=== PATIENT | male | born 1990 | race Caucasian/White ===

== ENCOUNTER 2019-08-24 11:07 | Emergency (ER) | payer OTHER ==
[2019-08-24 11:30] VITALS: RESP 18
[2019-08-24] MEDS ORDERED: SODIUM CHLORIDE 0.9% 1,000 ML IV ONE (11:34)
[2019-08-24] MEDS ORDERED: SODIUM CHLORIDE 0.9% 1,000 ML IV SCH (11:45)
--- NOTE | 2019-08-24 12:15 | XR ---
Left shoulder HISTORY: Pain 3 views of the left shoulder Bone mineralization, joint spaces and alignment are maintained. There are overlying artifacts present . Left lung apex as visualized is normal. IMPRESSION: Normal left shoulder.
[2019-08-24 12:22] LABS: Basophils # (A) 0.1 k/uL (0-0.2); Basophils % (A) 1 %; Eosinophils # (A) 0.2 k/uL (0-0.7); Eosinophils % (A) 3 %; HGB 13.9 gm/dL (13.0-17.5); Lymphocytes % (A) 30 %; MCH 31.8 pg (25.0-35.0); MCHC 33.1 g/dL (31.0-37.0); MCV 96.2 fL (80.0-100.0); Monocytes # (A) 0.4 k/uL (0-1.0); Monocytes % (A) 6 %; Neutrophils # (A) 3.8 k/uL (1.3-7.7); Neutrophils % (A) 58 %; Platelet Count 270 k/uL (150-450); RBC 4.36 m/uL (4.30-5.90); RDW 12.4 % (11.5-15.5); WBC 6.6 k/uL (3.8-10.6)
[2019-08-24 12:29] LABS: Appearance,Urine Clear (Clear); Bilirubin,Urine Negative (Negative); Blood,Urine Negative (Negative); Color,Urine Yellow; Glucose,Urine (UA) Negative (Negative); Ketones,Urine Negative (Negative); Leukocyte Esterase,Urine Negative (Negative); Nitrite,Urine Negative (Negative); PH, Urine 5.5 (5.0-8.0); Protein,Urine Trace (Negative); Specific Gravity,Urine 1.023 (1.001-1.035); Urobilinogen,Urine <2.0 mg/dL (<2.0)
[2019-08-24 12:31] LABS: ALT 49 U/L (21-72); AST 27 U/L (17-59); African American GFR (CKD) >90 (>60 ml/min/1.73 sqM); Albumin 4.4 g/dL (3.5-5.0); Alkaline Phosphatase 50 U/L (38-126); Amylase 49 U/L (30-110); Anion Gap 8 mmol/L; Blood Urea Nitrogen 18 mg/dL (9-20); Calcium 9.4 mg/dL (8.4-10.2); Carbon Dioxide 25 mmol/L (22-30); Chloride 108 mmol/L (98-107); Glucose 84 mg/dL (74-99); Non-African American GFR(CKD) >90 (>60 ml/min/1.73 sqM); Potassium 4.9 mmol/L (3.5-5.1); Sodium 141 mmol/L (137-145); Total Bilirubin 0.3 mg/dL (0.2-1.3); Total Protein 7.3 g/dL (6.3-8.2)
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
[2019-08-24 12:59] VITALS: BP 123/74; PULSE 76; TEMP 98.3
== END 2019-08-24 12:59 | disposition home or self-care (01) ==
LOC: EC 11:07
DX: R19.7 Diarrhea, unspecified (principal); R11.10 Vomiting, unspecified; M25.512 Pain in left shoulder; R10.12 Left upper quadrant pain; F12.90 Cannabis use, unspecified, uncomplicated; F17.200 Nicotine dependence, unspecified, uncomplicated; Z86.14 Personal history of Methicillin resistant Staphylococcus aureus infection; Z87.19 Personal history of other diseases of the digestive system; Z98.890 Other specified postprocedural states
CPT/HCPCS: 36415; 80053; 81003; 82150; 83690; 85025; 96360; 99284

== ENCOUNTER 2020-12-15 10:16 | Emergency (ER) | payer OTHER ==
[2020-12-15 10:20] VITALS: BP 136/73; PULSE 93; RESP 16; TEMP 97.6
[2020-12-15] MEDS ORDERED: FLUORESCEIN STRIPS 1 MG STRIP RIGHT EYE STA (10:46)
[2020-12-15] MEDS ORDERED: PROPARACAINE 0.5% OPHTH DROPS 15 ML BTL RIGHT EYE STA ×2 (10:46)
[2020-12-15] MEDS ORDERED: OFLOXACIN 0.3% OPHTH DROPS 5 ML BOTTLE RIGHT EYE STA (11:18)
--- NOTE | 2020-12-15 11:24 | ED ---
General Adult HPI - General Chief complaint: Eye Problems Stated complaint: Swollen eye Time Seen by Provider: 12/15/20 10:30 Source: patient Mode of arrival: ambulatory Limitations: no limitations - History of Present Illness Initial comments: 30-year-old male presents to the emergency room for a chief complaint of right eye pain. Patient reports that a week ago he started to have irritation of the right eye. States that he would wake up every day and it was crusted shut. She states that 3days ago he went to urgent care and they told him to keep it clean but that he otherwise did not need any other treatment. He reports he started to use an astringent eyedrop. The next day his eye started to swell. States the drops are very irritating to his eye. Patient states he feels like he has a film over his eye because of the drainage. States it feels like there is sandpaper in his eye. Patient denies any pain with movement of the eye. Denies fevers. Denies redness of the face or around the eye.Patient has no other complaints at this time including shortness of breath, chest pain, abdominal pain, nausea or vomiting, headache, or visual changes. - Related Data Home Medications Medication Instructions Recorded Confirmed Acetaminophen Tab [Tylenol Tab] 1,000 mg PO Q6HR PRN 08/24/19 08/24/19 Allergies Allergy/AdvReac Type Severity Reaction Status Date / Time No Known Allergies Allergy Verified 12/15/20 10:17 Review of Systems ROS Statement: Those systems with pertinent positive or pertinent negative responses have been documented in the HPI. ROS Other: All systems not noted in ROS Statement are negative. 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 History of Any Multi-Drug Resistant Organisms: MRSA Date of last positivie culture/infection: stomach MDRO Source:: 2014 Past Surgical History: No Surgical Hx Reported Past Psychological History: No Psychological Hx Reported, Depression Smoking Status: Current every day smoker Past Alcohol Use History: Rare Past Drug Use History: Marijuana General Exam Limitations: no limitations General appearance: alert, in no apparent distress Head exam: Present: atraumatic, normocephalic, normal inspection Eye exam: Present: PERRL, EOMI, conjunctival injection, periorbital swelling (Mild periorbital edema without erythema or tenderness), other (Purulent drainage noted on the eyelids). Absent: normal appearance, scleral icterus, periorbital tenderness Expanded Eyelids: Normal Inspection: Left, Swelling: Right Pupils: Regular, Round: Bilateral, Reactive: Bilateral Sclera/Conjunctival: Normal Inspection: Left, Injection: Right Visual acuity (R) = 20/: 25 Visual acuity (L) = 20/: 25 With correction: Yes IOP (R) in mmH IOP (L) in mmH IOP measured with: Tonopen ENT exam: Present: normal exam, mucous membranes moist Neck exam: Present: normal inspection, full ROM. Absent: tenderness, meningis mus, lymphadenopathy Respiratory exam: Present: normal lung sounds bilaterally. Absent: respiratory distress, wheezes, rales, rhonchi, stridor Cardiovascular Exam: Present: regular rate, normal rhythm, normal heart sounds Course Vital Signs 12/15/20 10:17 Temperature 97.6 F Pulse Rate 93 Respiratory 16 Rate Blood Pressure 136/73 O2 Sat by Pulse 99 Oximetry Medical Decision Making - Medical Decision Making Vitals are stable. Patient does have some mild periorbital edema however no periorbital erythema tenderness or induration. Patient does have conjunctival injection and purulent drainage noted on the eyelids. The eye was numbed with proparacaine which did help with his symptoms. I did stain the eye with fluorescein stain and vigorous with Wood's lamp, no corneal abrasions or ulcerations. No history of contact usage. Visual acuity 20/20 5 bilaterally. Patient's IOP is 26 right eye, 23 OS. States his pressures are always high and he was told he has glaucoma. He states he needs to follow up for this. At this time patient's and his are consistent with a bacterial conjunctivitis. No evidence for an orbital phalanx at this time as patient does not have any pain with extraocular movements or redness or induration of the periorbital area. I did discussed return parameters. I discussed patient needs to follow up with ophthalmology for this as well as his pressures. He will return here for any worsening symptoms. Disposition Clinical Impression: Conjunctivitis Disposition: HOME SELF-CARE Condition: Good Instructions (If sedation given, give patient instructions): Conjunctivitis (ED) Additional Instructions: Discontinue previous drops. Please use antibiotics as directed (use Good Rx lisa): Days 1-2: 1-2 drops in the right eye every 4 hours Days 3-7: 1-2 drops in the right eye 4 times daily Follow-up with primary care and ophthalmology. Discussed high pressures in the eye. Return to the emergency room for any worsening symptoms. Is patient prescribed a controlled substance at d/c from ED?: No Referrals: Noemi Abbott MD [REFERRING] - 1-2 days Ra Sharp MD [STAFF PHYSICIAN] - 1-2 days Time of Disposition: 11:21
== END 2020-12-15 11:37 | disposition home or self-care (01) ==
LOC: EC 10:16
DX: H10.9 Unspecified conjunctivitis (principal); D66 Hereditary factor VIII deficiency; F32.9 Major depressive disorder, single episode, unspecified; H40.9 Unspecified glaucoma; F17.200 Nicotine dependence, unspecified, uncomplicated; Z86.14 Personal history of Methicillin resistant Staphylococcus aureus infection
CPT/HCPCS: 99283

== ENCOUNTER 2021-08-04 09:16 | Emergency (ER) | payer OTHER ==
[2021-08-04 09:25] VITALS: PULSE 78; RESP 18; TEMP 98
[2021-08-04] MEDS ORDERED: MORPHINE SULFATE 4 MG/ML SYRINGE IV STA (09:42)
[2021-08-04] MEDS ORDERED: ONDANSETRON 4 MG/2 ML VIAL IVP STA (09:42)
[2021-08-04] MEDS ORDERED: SODIUM CHLORIDE 0.9% 1,000 ML IV STA (09:42)
[2021-08-04 10:07] LABS: Basophils # (A) 0.1 k/uL (0-0.2); Basophils % (A) 0 %; Eosinophils # (A) 0.1 k/uL (0-0.7); Eosinophils % (A) 1 %; HCT 41.5 % (39.0-53.0); HGB 13.9 gm/dL (13.0-17.5); Lymphocytes % (A) 25 %; MCH 32.4 pg (25.0-35.0); MCHC 33.4 g/dL (31.0-37.0); MCV 97.1 fL (80.0-100.0); Mean Platelet Volume 7.6; Monocytes # (A) 0.9 k/uL (0-1.0); Monocytes % (A) 6 %; Neutrophils # (A) 10.6 k/uL (1.3-7.7); Neutrophils % (A) 67 %; Platelet Count 277 k/uL (150-450); RBC 4.28 m/uL (4.30-5.90); RDW 12.2 % (11.5-15.5); WBC 15.9 k/uL (3.8-10.6)
[2021-08-04 10:19] LABS: Appearance,Urine Clear (Clear); Bilirubin,Urine Negative (Negative); Blood,Urine Negative (Negative); Calcium Oxalate Crystals,Urine Rare /hpf; Color,Urine Yellow; Glucose,Urine (UA) Negative (Negative); Ketones,Urine Negative (Negative); Leukocyte Esterase,Urine Negative (Negative); Mucus,Urine Many /hpf; Nitrite,Urine Negative (Negative); Protein,Urine 1+ (Negative); RBC,Urine 3 /hpf (0-5); Specific Gravity,Urine 1.042 (1.001-1.035); Squamous Epithelial Cell,Urine <1 /hpf (0-4); WBC,Urine <1 /hpf (0-5)
[2021-08-04 10:50] LABS: ALT 16 U/L (4-49); AST 21 U/L (17-59); African American GFR (CKD) >90 (>60 ml/min/1.73 sqM); Albumin 4.2 g/dL (3.5-5.0); Alkaline Phosphatase 49 U/L (38-126); Amylase 57 U/L (30-110); Anion Gap 8 mmol/L; Blood Urea Nitrogen 16 mg/dL (9-20); Calcium 9.4 mg/dL (8.4-10.2); Carbon Dioxide 26 mmol/L (22-30); Chloride 106 mmol/L (98-107); Glucose 89 mg/dL (74-99); Lipase 55 U/L (23-300); Non-African American GFR(CKD) >90 (>60 ml/min/1.73 sqM); Potassium 3.4 mmol/L (3.5-5.1); Sodium 140 mmol/L (137-145); Total Bilirubin 0.2 mg/dL (0.2-1.3); Total Protein 6.9 g/dL (6.3-8.2)
--- NOTE | 2021-08-04 11:19 | CT ---
EXAMINATION TYPE: CT abdomen pelvis w con DATE OF EXAM: 08/04/2021 COMPARISON: NONE HISTORY: 30-year-old male history of Crohn's disease, Abdominal pain TECHNIQUE: Contiguous axial scanning of the abdomen and pelvis following administration of 100 ml Iso basil 300 IV contrast. Delayed images through the kidneys and coronal/sagittal reconstructions perform ed. CT DLP: 936.1 mGycm Automated exposure control for dose reduction was used. FINDINGS: Heart normal size without pericardial effusion. The groundglass opacities seen previously in the lowe r lungs have resolved. No focal liver lesion or biliary ductal dilatation. Portal venous system is patent. Gallbladder, adrenal glands, right kidney, spleen, pancreas appear within normal limits. 1.8 cm cortical hypodense round lesion lateral mid to lower pole left kidney is new. It shows interme diate attenuation and probably represents a proteinaceous or hemorrhagic cyst. Retroaortic left renal vein. No dilated small bowel, free fluid, or free air. No mesenteric or retroperitoneal lymphadenopathy see n. Prominent fluid-filled small bowel loops lower abdomen and pelvis. No abnormal wall thickening is karen jaci identified. Normal appendix. Moderate stool distal sigmoid and rectum. No pericolonic inflammatory changes are id entified. Bladder not distended. Prostate gland measures 5.1 cm wide. No abnormal fluid collection in the pelvi s or pelvic lymphadenopathy. Bones: Right L5 pars interarticularis defect. No osseous destructive process. IMPRESSION: 1. PROMINENT FLUID-FILLED SMALL BOWEL LOOPS IN THE LOWER ABDOMEN AND PELVIS MAY BE TRANSIENT. FINDING S COULD REFLECT A NONSPECIFIC MILD ENTERITIS. 2. A NEW 1.8 CM CORTICAL LESION LATERAL LEFT KIDNEY SHOWS INTERMEDIATE ATTENUATION. A HEMORRHAGIC OR PROTEINACEOUS CYST IS FAVORED. NONEMERGENT FOLLOW-UP KIDNEY ULTRASOUND TO CONFIRM THAT THIS REPRESENT S A CYST. 3. MODERATE STOOL IN THE DISTAL SIGMOID AND RECTUM.
--- NOTE | 2021-08-04 11:26 | ED ---
Abdominal Pain HPI - General Chief Complaint: Abdominal Pain Stated Complaint: abd pain & vomiting Time Seen by Provider: 08/04/21 09:26 Source: patient, RN notes reviewed Mode of arrival: ambulatory Limitations: no limitations - History of Present Illness Initial Comments: Patient is a 30-year-old male that presents to the emergency department complain ing of generalized abdominal pain for the past 5 days. He also notes is been nauseous and vomiting several times. He notes that he does have a history of abdominal issues was being worked up for Crohn's but his physician in past when he has not followed up since. Patient noted generalized abdominal discomfort. He was otherwise well-appearing on exam. He denied chest pain shortness of breath headache diarrhea constipation fever fatigue chills. - Related Data Home Medications Medication Instructions Recorded Confirmed Acetaminophen Tab [Tylenol Tab] 1,000 mg PO Q6HR PRN 08/24/19 08/24/19 Allergies Allergy/AdvReac Type Severity Reaction Status Date / Time Penicillins Allergy Rash/Hives Verified 08/04/21 09:25 Review of Systems ROS Statement: Those systems with pertinent positive or pertinent negative responses have been documented in the HPI. ROS Other: All systems not noted in ROS Statement are negative. 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 Absent: scleral icterus, conjunctival injection, periorbital swelling ENT exam: Present: normal exam, mucous membranes moist Neck exam: Present: normal inspection Respiratory exam: Present: normal lung sounds bilaterally. Absent: respiratory distress, wheezes, rales, rhonchi, stridor Cardiovascular Exam: Present: regular rate, normal rhythm, normal heart sounds. Absent: systolic murmur, diastolic murmur, rubs, gallop, clicks GI/Abdominal exam: Present: soft, tenderness (Generalized all quadrants), normal bowel sounds. Absent: distended, guarding, rebound, rigid Extremities exam: Present: normal inspection, full ROM, normal capillary refill. Absent: tenderness, pedal edema, joint swelling, calf tenderness Back exam: Present: normal inspection Neurological exam: Present: alert, oriented X3 Psychiatric exam: Present: normal affect, normal mood Skin exam: Present: warm, dry, intact, normal color. Absent: rash Course Vital Signs 08/04/21 09:21 Temperature 98 F Pulse Rate 78 Respiratory 18 Rate Blood Pressure 144/89 O2 Sat by Pulse 98 Oximetry Medical Decision Making - Medical Decision Making 30-year-old male complaining of abdominal pain with nausea and vomiting for the past several days. Labs, 1 L normal saline, 4 mg Zofran, CT abdomen and pelvis ordered. Labs: White blood cells 15.9 most likely reactive to nausea vomiting, CMP unremarkable. Urinalysis unremarkable. Computed tomography scan shows mild uncomplicated at her eyes and several small hypoechoic kidney lesions consistent with cysts follow-up ultrasound medic. Patient is removed discharge home Zofran starter pack with follow-up to primary care. Case discussed with Dr. Callejas, patient discharge home. - Lab Data Result diagrams: 08/04/21 10:00 08/04/21 10:00 Lab Results 08/04/21 08/04/21 08/04/21 Range/Units 10:00 10:00 10:00 WBC 15.9 H (3.8-10.6) k/uL RBC 4.28 L (4.30-5.90) m/uL Hgb 13.9 (13.0-17.5) gm/dL Hct 41.5 (39.0-53.0) % MCV 97.1 (80.0-100.0) fL MCH 32.4 (25.0-35.0) pg MCHC 33.4 (31.0-37.0) g/dL RDW 12.2 (11.5-15.5) % Plt Count 277 (150-450) k/uL MPV 7.6 Neutrophils % 67 % Lymphocytes % 25 % Monocytes % 6 % Eosinophils % 1 % Basophils % 0 % Neutrophils # 10.6 H (1.3-7.7) k/uL Lymphocytes # 4.0 (1.0-4.8) k/uL Monocytes # 0.9 (0-1.0) k/uL Eosinophils # 0.1 (0-0.7) k/uL Basophils # 0.1 (0-0.2) k/uL Sodium 140 (137-145) mmol/L Potassium 3.4 L (3.5-5.1) mmol/L Chloride 106 (98-107) mmol/L Carbon Dioxide 26 (22-30) mmol/L Anion Gap 8 mmol/L BUN 16 (9-20) mg/dL Creatinine 0.84 (0.66-1.25) mg/dL Est GFR (CKD-EPI)AfAm >90 (>60 ml/min/1.73 sqM) Est GFR (CKD-EPI)NonAf >90 (>60 ml/min/1.73 sqM) Glucose 89 (74-99) mg/dL Calcium 9.4 (8.4-10.2) mg/dL Total Bilirubin 0.2 (0.2-1.3) mg/dL AST 21 (17-59) U/L ALT 16 (4-49) U/L Alkaline Phosphatase 49 (38-126) U/L Total Protein 6.9 (6.3-8.2) g/dL Albumin 4.2 (3.5-5.0) g/dL Amylase 57 (30-110) U/L Lipase 55 (23-300) U/L Urine Color Yellow Urine Appearance Clear (Clear) Urine pH 6.0 (5.0-8.0) Ur Specific [place] 1.042 H (1.001-1.035) Urine Protein 1+ H (Negative) Urine Glucose (UA) Negative (Negative) Urine Ketones Negative (Negative) Urine Blood Negative (Negative) Urine Nitrite Negative (Negative) Urine Bilirubin Negative (Negative) Urine Urobilinogen 3.0 (<2.0) mg/dL Ur Leukocyte Esterase Negative (Negative) Urine RBC 3 (0-5) /hpf Urine WBC <1 (0-5) /hpf Ur Squamous Epith Cells <1 (0-4) /hpf Calcium Oxalate Crystal Rare H (None) /hpf Urine Mucus Many H (None) /hpf - Radiology Data Radiology results: report reviewed, image reviewed CT abdomen and pelvis: Fluid filled small bowel loops in the lower abdomen and pelvis may be transient findings could reflect a nonspecific mild enteritis. A new 1.8 cm cortical lesion lateral left kidney shows intermediate attenuation. A hemorrhagic or proteinaceous cyst is favored. Nonemergent follow-up kidney. TO CONFIRM THAT THIS REPRESENTS A CYST. MODERATE STOOL IN THE DISTAL SIGMOID AND RECTUM. Disposition Clinical Impression: Enteritis Disposition: HOME SELF-CARE Condition: Stable Instructions (If sedation given, give patient instructions): Enteritis (ED) Additional Instructions: Please return to the Emergency Department if symptoms worsen or any other concerns. Follow-up with primary care 1-2 days. Follow-up with kidney ultrasound for cysts found on computed tomography scan. Take Zofran as prescribed. Is patient prescribed a controlled substance at d/c from ED?: No Referrals: None,Stated [Primary Care Provider] - 1-2 days Time of Disposition: 12:44
[2021-08-04] MEDS ORDERED: ONDANSETRON 4 MG ODT STARTER PACK 2 TAB BTL PO STA (12:43)
[2021-08-04 14:16] VITALS: BP 131/81
== END 2021-08-04 14:16 | disposition home or self-care (01) ==
LOC: EC 09:16
DX: K52.9 Noninfective gastroenteritis and colitis, unspecified (principal); F17.200 Nicotine dependence, unspecified, uncomplicated; F12.90 Cannabis use, unspecified, uncomplicated; Z88.0 Allergy status to penicillin
CPT/HCPCS: 99284; 96374; 96375; 96361; 36415; 80053; 82150; 83690; 85025; 81001; 74177; J2270; J2405; S0119; Q9967

== ENCOUNTER 2021-09-20 11:12 | Emergency (ER) | payer BC ==
[2021-09-20 11:30] VITALS: BP 108/69; TEMP 98.2
[2021-09-20] MEDS ORDERED: diphenhydrAMINE 50 MG/ML 1 ML VIAL IVP STA (11:57)
[2021-09-20] MEDS ORDERED: SODIUM CHLORIDE 0.9% 2,000 ML IV STA (11:57)
[2021-09-20] MEDS ORDERED: METOCLOPRAMIDE 5 MG/ML 2 ML VIAL IVP STA (11:57)
[2021-09-20] MEDS ORDERED: HYDROmorphone 0.5 MG/0.5 ML SYRINGE IVP STA (11:57)
[2021-09-20] MEDS ORDERED: KETOROLAC 15 MG/ML 1 ML VIAL IVP STA (11:57)
[2021-09-20 12:31] LABS: Basophils % (A) 1 %; Eosinophils # (A) 0.1 k/uL (0-0.7); Eosinophils % (A) 1 %; HCT 45.8 % (39.0-53.0); HGB 15.7 gm/dL (13.0-17.5); Lymphocytes # (A) 2.3 k/uL (1.0-4.8); Lymphocytes % (A) 35 %; MCHC 34.3 g/dL (31.0-37.0); MCV 96.2 fL (80.0-100.0); Mean Platelet Volume 7.6; Monocytes # (A) 0.4 k/uL (0-1.0); Monocytes % (A) 5 %; Neutrophils # (A) 3.7 k/uL (1.3-7.7); Neutrophils % (A) 56 %; Platelet Count 297 k/uL (150-450); RBC 4.76 m/uL (4.30-5.90); RDW 11.9 % (11.5-15.5); WBC 6.5 k/uL (3.8-10.6)
[2021-09-20 12:48] LABS: ALT 16 U/L (4-49); AST 20 U/L (17-59); African American GFR (CKD) >90 (>60 ml/min/1.73 sqM); Albumin 4.6 g/dL (3.5-5.0); Alkaline Phosphatase 50 U/L (38-126); Amylase 54 U/L (30-110); Anion Gap 11 mmol/L; Blood Urea Nitrogen 17 mg/dL (9-20); Calcium 9.8 mg/dL (8.4-10.2); Carbon Dioxide 24 mmol/L (22-30); Chloride 105 mmol/L (98-107); Creatine Kinase 81 U/L (55-170); Glucose 96 mg/dL (74-99); Lipase 63 U/L (23-300); Magnesium 1.9 mg/dL (1.6-2.3); Non-African American GFR(CKD) >90 (>60 ml/min/1.73 sqM); Potassium 4.5 mmol/L (3.5-5.1); Sodium 140 mmol/L (137-145); Total Bilirubin 0.5 mg/dL (0.2-1.3); Total Protein 7.4 g/dL (6.3-8.2)
--- NOTE | 2021-09-20 13:23 | US ---
EXAMINATION TYPE: US renals and bladder DATE OF EXAM: 09/20/2021 COMPARISON: CT 08/04/2021 CLINICAL HISTORY: pain,. Back pain EXAM MEASUREMENTS: Right Kidney: 10.4 x 4.9 x 5.8 cm Left Kidney: 10.8 x 5.3 x 5.1 cm Right Kidney: No hydronephrosis or masses seen Left Kidney: 0.6cm echogenic focus mid pole, 1.7 x 1.6 x 1.4cm hyperechoic lesion lateral inferior po le Bladder: not fully distended, appears wnl as seen Bilateral Jets seen: no There is no evidence for hydronephrosis at this point in time. No nephrolithiasis is seen. Cortical medullary differentiation is maintained. No masses are identified. The urinary bladder is anechoic. Bilateral ureteral jets are not seen. IMPRESSION: The focus seen in the lateral aspect of the midpole of the left kidney is not simple cystic, may repr esent proteinaceous cyst. MRI of the kidneys could be performed for confirmation.
[2021-09-20 14:16] LABS: Appearance,Urine Clear (Clear); Bilirubin,Urine Negative (Negative); Blood,Urine Negative (Negative); Color,Urine Yellow; Glucose,Urine (UA) Negative (Negative); Ketones,Urine Negative (Negative); Leukocyte Esterase,Urine Negative (Negative); Mucus,Urine Many /hpf; Nitrite,Urine Negative (Negative); PH, Urine 5.5 (5.0-8.0); Protein,Urine 1+ (Negative); RBC,Urine <1 /hpf (0-5); Specific Gravity,Urine 1.033 (1.001-1.035); Squamous Epithelial Cell,Urine 1 /hpf (0-4); Urobilinogen,Urine <2.0 mg/dL (<2.0); WBC,Urine <1 /hpf (0-5)
--- NOTE | 2021-09-20 14:29 | ED ---
General Adult HPI - General Chief complaint: Abdominal Pain Stated complaint: abd & back pain Time Seen by Provider: 09/20/21 11:41 Source: patient, RN notes reviewed Mode of arrival: ambulatory Limitations: no limitations - History of Present Illness Initial comments: This a 30-year-old male presents emergency apartment with chief complaint of back pain. Patient states she's been having some increasing issues he does admit that he does lift at work. Denies any known injury though. Patient states she is concerned she had a CAT scan a few months ago which showed renal cysts was recommended to have an Ultram but never followed up at this point. S tates his urine was dark which also concerned about an episode of vomiting. No prior surgeries no fevers or chills no other complaints. - Related Data Home Medications Medication Instructions Recorded Confirmed Acetaminophen Tab [Tylenol Tab] 1,000 mg PO Q6HR PRN 08/24/19 08/24/19 Allergies Allergy/AdvReac Type Severity Reaction Status Date / Time Penicillins Allergy Rash/Hives Verified 09/20/21 11:27 Review of Systems ROS Statement: Those systems with pertinent positive or pertinent negative responses have been documented in the HPI. ROS Other: All systems not noted in ROS Statement are negative. 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, renal cysts History of Any Multi-Drug Resistant Organisms: MRSA Date of last positivie culture/infection: stomach MDRO Source:: 2014 Past Surgical History: Adenoidectomy, Tonsillectomy Past Psychological History: No Psychological Hx Reported Smoking Status: Current every day smoker Past Alcohol Use History: None Reported Past Drug Use History: Marijuana General Exam Limitations: no limitations General appearance: alert, in no apparent distress Head exam: Present: atraumatic, normocephalic, normal inspection Eye exam: Present: normal appearance, PERRL, EOMI. Absent: scleral icterus, conjunctival injection, periorbital swelling Respiratory exam: Present: normal lung sounds bilaterally. Absent: respiratory distress, wheezes, rales, rhonchi, stridor Cardiovascular Exam: Present: regular rate, normal rhythm, normal heart sounds. Absent: systolic murmur, diastolic murmur, rubs, gallop, clicks GI/Abdominal exam: Present: soft, normal bowel sounds. Absent: distended, tenderness, guarding, rebound, rigid Back exam: Present: full ROM, muscle spasm, paraspinal tenderness. Absent: tenderness, CVA tenderness (R), CVA tenderness (L), vertebral tenderness Neurological exam: Present: alert, oriented X3, CN II-XII intact, reflexes normal. Absent: motor sensory deficit Skin exam: Present: warm, dry, intact, normal color. Absent: rash Course Vital Signs 09/20/21 11:27 Temperature 98.2 F Pulse Rate 97 Respiratory 18 Rate Blood Pressure 108/69 O2 Sat by Pulse 100 Oximetry Medical Decision Making - Medical Decision Making Patient ultrasound, labs unremarkable. Ultrasound did show nonspecific for proteinaceous cyst. Patient pain is improved. I do believe this related to muscle skeletal pain return parameters were discussed. - Lab Data Result diagrams: 09/20/21 12:12 09/20/21 12:12 Lab Results 09/20/21 09/20/21 09/20/21 Range/Units 12:12 12:12 12:12 WBC 6.5 (3.8-10.6) k/uL RBC 4.76 (4.30-5.90) m/uL Hgb 15.7 (13.0-17.5) gm/dL Hct 45.8 (39.0-53.0) % MCV 96.2 (80.0-100.0) fL MCH 33.0 (25.0-35.0) pg MCHC 34.3 (31.0-37.0) g/dL RDW 11.9 (11.5-15.5) % Plt Count 297 (150-450) k/uL MPV 7.6 Neutrophils % 56 % Lymphocytes % 35 % Monocytes % 5 % Eosinophils % 1 % Basophils % 1 % Neutrophils # 3.7 (1.3-7.7) k/uL Lymphocytes # 2.3 (1.0-4.8) k/uL Monocytes # 0.4 (0-1.0) k/uL Eosinophils # 0.1 (0-0.7) k/uL Basophils # 0.0 (0-0.2) k/uL Sodium 140 (137-145) mmol/L Potassium 4.5 (3.5-5.1) mmol/L Chloride 105 (98-107) mmol/L Carbon Dioxide 24 (22-30) mmol/L Anion Gap 11 mmol/L BUN 17 (9-20) mg/dL Creatinine 0.93 (0.66-1.25) mg/dL Est GFR (CKD-EPI)AfAm >90 (>60 ml/min/1.73 sqM) Est GFR (CKD-EPI)NonAf >90 (>60 ml/min/1.73 sqM) Glucose 96 (74-99) mg/dL Plasma Lactic Acid Alvin (0.7-2.0) mmol/L Calcium 9.8 (8.4-10.2) mg/dL Magnesium 1.9 (1.6-2.3) mg/dL Total Bilirubin 0.5 (0.2-1.3) mg/dL AST 20 (17-59) U/L ALT 16 (4-49) U/L Alkaline Phosphatase 50 (38-126) U/L Creatine Kinase 81 (55-170) U/L Total Protein 7.4 (6.3-8.2) g/dL Albumin 4.6 (3.5-5.0) g/dL Amylase 54 (30-110) U/L Lipase 63 (23-300) U/L Urine Color Yellow Urine Appearance Clear (Clear) Urine pH 5.5 (5.0-8.0) Ur Specific [place] 1.033 (1.001-1.035) Urine Protein 1+ H (Negative) Urine Glucose (UA) Negative (Negative) Urine Ketones Negative (Negative) Urine Blood Negative (Negative) Urine Nitrite Negative (Negative) Urine Bilirubin Negative (Negative) Urine Urobilinogen <2.0 (<2.0) mg/dL Ur Leukocyte Esterase Negative (Negative) Urine RBC <1 (0-5) /hpf Urine WBC <1 (0-5) /hpf Ur Squamous Epith Cells 1 (0-4) /hpf Urine Mucus Many H (None) /hpf 09/20/21 Range/Units 12:12 WBC (3.8-10.6) k/uL RBC (4.30-5.90) m/uL Hgb (13.0-17.5) gm/dL Hct (39.0-53.0) % MCV (80.0-100.0) fL MCH (25.0-35.0) pg MCHC (31.0-37.0) g/dL RDW (11.5-15.5) % Plt Count (150-450) k/uL MPV Neutrophils % % Lymphocytes % % Monocytes % % Eosinophils % % Basophils % % Neutrophils # (1.3-7.7) k/uL Lymphocytes # (1.0-4.8) k/uL Monocytes # (0-1.0) k/uL Eosinophils # (0-0.7) k/uL Basophils # (0-0.2) k/uL Sodium (137-145) mmol/L Potassium (3.5-5.1) mmol/L Chloride (98-107) mmol/L Carbon Dioxide (22-30) mmol/L Anion Gap mmol/L BUN (9-20) mg/dL Creatinine (0.66-1.25) mg/dL Est GFR (CKD-EPI)AfAm (>60 ml/min/1.73 sqM) Est GFR (CKD-EPI)NonAf (>60 ml/min/1.73 sqM) Glucose (74-99) mg/dL Plasma Lactic Acid Alvin 0.9 (0.7-2.0) mmol/L Calcium (8.4-10.2) mg/dL Magnesium (1.6-2.3) mg/dL Total Bilirubin (0.2-1.3) mg/dL AST (17-59) U/L ALT (4-49) U/L Alkaline Phosphatase (38-126) U/L Creatine Kinase (55-170) U/L Total Protein (6.3-8.2) g/dL Albumin (3.5-5.0) g/dL Amylase (30-110) U/L Lipase (23-300) U/L Urine Color Urine Appearance (Clear) Urine pH (5.0-8.0) Ur Specific [place] (1.001-1.035) Urine Protein (Negative) Urine Glucose (UA) (Negative) Urine Ketones (Negative) Urine Blood (Negative) Urine Nitrite (Negative) Urine Bilirubin (Negative) Urine Urobilinogen (<2.0) mg/dL Ur Leukocyte Esterase (Negative) Urine RBC (0-5) /hpf Urine WBC (0-5) /hpf Ur Squamous Epith Cells (0-4) /hpf Urine Mucus (None) /hpf Disposition Clinical Impression: Back pain Disposition: HOME SELF-CARE Condition: Stable Instructions (If sedation given, give patient instructions): Back Pain (ED) Additional Instructions: Please return to the Emergency Department if symptoms worsen or any other co ncerns. Is patient prescribed a controlled substance at d/c from ED?: No Referrals: None,Stated [Primary Care Provider] - 1-2 days Time of Disposition: 14:29
[2021-09-20] MEDS ORDERED: ACET/COD 300 MG/30 MG STARTER PACK 6 TAB BTL PO STA (14:39)
[2021-09-20 14:46] VITALS: PULSE 74; RESP 16
== END 2021-09-20 14:46 | disposition home or self-care (01) ==
LOC: EC 11:12
DX: M54.9 Dorsalgia, unspecified (principal); F17.200 Nicotine dependence, unspecified, uncomplicated; F12.90 Cannabis use, unspecified, uncomplicated; X50.0XXA Overexertion from strenuous movement or load, initial encounter
CPT/HCPCS: 36415; 80053; 82150; 82550; 83605; 83690; 83735; 85025; 81001; 76770; 99284; 96374; 96375 ×3; 96361 ×2; J1200; J2765; J1885; J1170

== ENCOUNTER 2022-01-29 06:06 | Emergency (ER) | payer BC ==
[2022-01-29 13:43] LABS: ALT 17 U/L (4-49); AST 22 U/L (17-59); African American GFR (CKD) >90 (>60 ml/min/1.73 sqM); Albumin 3.9 g/dL (3.5-5.0); Alkaline Phosphatase 39 U/L (38-126); Amylase 65 U/L (30-110); Anion Gap 5 mmol/L; Blood Urea Nitrogen 19 mg/dL (9-20); Calcium 8.8 mg/dL (8.4-10.2); Carbon Dioxide 27 mmol/L (22-30); Chloride 107 mmol/L (98-107); Glucose 90 mg/dL (74-99); Non-African American GFR(CKD) >90 (>60 ml/min/1.73 sqM); Potassium 4.2 mmol/L (3.5-5.1); Sodium 139 mmol/L (137-145); Total Bilirubin 0.4 mg/dL (0.2-1.3); Total Protein 6.6 g/dL (6.3-8.2)
[2022-01-29 15:49] LABS: HCT 39.2 % (39.0-53.0); HGB 13.3 gm/dL (13.0-17.5); MCHC 33.9 g/dL (31.0-37.0); MCV 97.3 fL (80.0-100.0); Mean Platelet Volume 7.6; Platelet Count 247 k/uL (150-450); RBC 4.03 m/uL (4.30-5.90); RDW 12.2 % (11.5-15.5); WBC 6.4 k/uL (3.8-10.6)
== END 2022-01-29 08:35 | disposition home or self-care (01) ==
LOC: EC 06:06
DX: R10.9 Unspecified abdominal pain (principal)
CPT/HCPCS: 36415; 80053; 82150; 85025; 99283

== ENCOUNTER 2024-10-19 05:30 | Emergency (ER) | payer BC, OTHER ==
--- NOTE | 2024-10-19 05:37 | ED ---
Skin/Abscess/FB HPI - General Source: patient, RN notes reviewed, old records reviewed Mode of arrival: ambulatory Limitations: no limitations - History of Present Illness MD complaint: abscess/boil -: days(s) Location: genitals Severity: severe Severity scale (1-10): 9 Consistency: constant Improves with: none Context: none Treatments Prior to Arrival: attempted to drain pus at home <Cyril Loomis - Last Filed: 10/19/24 07:12> <Jose C Murphy - Last Filed: 10/19/24 08:38> - General Chief complaint: Skin/Abscess/Foreign Body Stated complaint: Painful abscess Time Seen by Provider: 10/19/24 05:37 - History of Present Illness Initial comments: This is a 34-year-old male to the ER for evaluation today. 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 He noticed in the shower it was worse (Cyril Loomis) - Related Data Home Medications Medication Instructions Recorded Confirmed Acetaminophen Tab [Tylenol Tab] 1,000 mg PO Q6HR PRN 08/24/19 08/24/19 Previous Rx's Medication Instructions Recorded Cyclobenzaprine [Flexeril] 10 mg PO TID PRN #15 tab 09/20/21 Cephalexin [Keflex] 500 mg PO Q6HR #40 cap 10/19/24 Sulfamethox-Tmp 800-160Mg [Bactrim 2 tab PO BID #40 tab 10/19/24 DS 800-160 mg] Allergies Allergy/AdvReac Type Severity Reaction Status Date / Time Penicillins Allergy Rash/Hives Verified 10/19/24 05:32 Review of Systems ROS Other: All systems not noted in ROS Statement are negative. <Cyril Loomis - Last Filed: 10/19/24 07:12> ROS Other: All systems not noted in ROS Statement are negative. <Jose C Murphy - Last Filed: 10/19/24 08:38> ROS Statement: Those systems with pertinent positive or pertinent negative responses have been documented in the HPI. 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, renal cysts History of Any Multi-Drug Resistant Organisms: MRSA Date of last positivie culture/infection: stomach MDRO Source:: 2014 Past Surgical History: Adenoidectomy, Tonsillectomy Past Psychological History: No Psychological Hx Reported Smoking Status: Current every day smoker Past Alcohol Use History: None Reported Past Drug Use History: Marijuana <Cyril Loomis - Last Filed: 10/19/24 07:12> General Exam Limitations: no limitations General appearance: alert, in no apparent distress Head exam: Present: atraumatic, normocephalic, normal inspection Eye exam: Present: normal appearance, PERRL, EOMI. Absent: scleral icterus, conjunctival injection, periorbital swelling ENT exam: Present: normal exam, mucous membranes moist Neck exam: Present: normal inspection. Absent: tenderness, meningismus, lymphadenopathy Respiratory exam: Present: normal lung sounds bilaterally. Absent: respiratory distress, wheezes, rales, rhonchi, stridor Cardiovascular Exam: Present: regular rate, normal rhythm, normal heart sounds. Absent: systolic murmur, diastolic murmur, rubs, gallop, clicks GI/Abdominal exam: Present: soft, normal bowel sounds. Absent: distended, tenderness, guarding, rebound, rigid Extremities exam: Present: normal inspection, full ROM, normal capillary refill. Absent: tenderness, pedal edema, joint swelling, calf tenderness Back exam: Present: normal inspection Neurological exam: Present: alert, oriented X3, CN II-XII intact Psychiatric exam: Present: normal affect, normal mood Skin exam: Present: warm, dry, intact, normal color. Absent: rash <Cyril Loomis - Last Filed: 10/19/24 07:12> Course <Cyril Loomis - Last Filed: 10/19/24 07:12> Vital Signs 10/19/24 10/19/24 05:32 08:04 Temperature 97.9 F 98.1 F Pulse Rate 84 68 Respiratory 16 18 Rate Blood Pressure 120/77 106/68 O2 Sat by Pulse 98 100 Oximetry - Reevaluation(s) Reevaluation #1: 10/19/24 06:03 Medical records reviewed (Cyril Loomis) Reevaluation #2: 10/19/24 06:03 Given warm compress here in the ER (Cyril Loomis) Reevaluation #4: Was pt. sent in by a medical professional or institution (TALYA Benitez, PLANNING AND ANALYSIS MANAGER, urgent care, hospital, or retirement...) When possible be specific @ -no Did you speak to anyone other than the patient for history (EMS, parent, family, police, friend...)? What history was obtained from this source @ -no Did you review nursing and triage notes (agree or disagree)? Why? @ -agree Are old charts reviewed (outside hosp., previous admission, EMS record, old EKG, old radiological studies, urgent care reports/EKG's, retirement records)? Report findings @ -yes Differential Diagnosis (chest pain, altered mental status, abdominal pain women, abdominal pain men, vaginal bleeding, weakness, fever, dyspnea, syncope, headache, dizziness, GI bleed, back pain, seizure, CVA, palpatations, mental health, musculoskeletal)? @ -prior EKG interpreted by me (3pts min.). @ -yes X-rays interpreted by me (1pt min.). @ -yes negative for acute disease CT interpreted by me (1pt min.). @ -no U/S interpreted by me (1pt. min.). @ -no What testing was considered but not performed or refused? (CT, X-rays, U/S, labs)? Why? @ -none What meds were considered but not given or refused? Why? @ -none Did you discuss the management of the patient with other professionals (professionals i.e. TALYA Benitez, PLANNING AND ANALYSIS MANAGER, lab, RT, psych nurse, social media strategist, web software engineer, teacher, chief contract officer, protective services case worker)? Give summary @ -no Was smoking cessation discussed for >3mins.? @ -no Was critical care preformed (if so, how long)? @ -no Were there social determinants of health that impacted care today? How? (Homelessness, low income, unemployed, alcoholism, drug addiction, transportation, low edu. Level, literacy, decrease access to med. care, residential, rehab)? @ -none Was there de-escalation of care discussed even if they declined (Discuss DNR or withdrawal of care, Hospice)? DNR status @ -no What co-morbidities impacted this encounter? (DM, HTN, Smoking, COPD, CAD, Cancer, CVA, ARF, Chemo, Hep., AIDS, mental health diagnosis, sleep apnea, morbid obesity)? @ -none Was patient admitted / discharged? Hospital course, mention meds given and route, prescriptions, significant lab abnormalities, going to OR and other pertinent info. @ - Undiagnosed new problem with uncertain prognosis? @ -no Drug Therapy requiring intensive monitoring for toxicity (Heparin, Nitro, Insul in, Cardizem)? @ -no Were any procedures done? @ -no Diagnosis/symptom? @ - Acute, or Chronic, or Acute on Chronic? @ -Acute Uncomplicated (without systemic symptoms) or Complicated (systemic symptoms)? @ -Complicated Side effects of treatment? @ -no Exacerbation, Progression, or Severe Exacerbation? @ -exacerbation Poses a threat to life or bodily function? How? (Chest pain, [place], [place], pneumonia, PE, COPD, DKA, ARF, appy, cholecystitis, CVA, Diverticulitis, Homicidal, Suicidal, threat to staff... and all critical care pts) @ -yes (Cyril Loomis) Medical Decision Making <Jose C Murphy - Last Filed: 10/19/24 08:38> - Medical Decision Making Patient care signed out to me by previous shift physician, Dr. Martinez,. Briefly, patient presents with right-sided inguinal abscess. Started to drain. Plan at signout was to follow-up with pending ultrasound. Ultrasound was obtained showing good flow to both testicles. Patient seen and evaluated at the bedside 8:37 AM. exam was performed showing draining wound to the left inguinal area just above the scrotum. Patient states he does not have insurance. He is given outpatient referral to urology for follow-up. Patient started on antibiotics. (Jose C Murphy) Disposition Is patient prescribed a controlled substance at d/c from ED?: No Time of Disposition: 07:12 <Cyril Loomis - Last Filed: 10/19/24 07:12> Is patient prescribed a controlled substance at d/c from ED?: No <Jose C Murphy - Last Filed: 10/19/24 08:38> Clinical Impression: Scrotum, abscess Disposition: HOME SELF-CARE Condition: Good Instructions (If sedation given, give patient instructions): Abscess Incision and Drainage (ED), Abscess (ED) Prescriptions: Sulfamethox-Tmp 800-160Mg [Bactrim DS 800-160 mg] 2 tab PO BID #40 tab Cephalexin [Keflex] 500 mg PO Q6HR #40 cap Referrals: Augustin Willett DO [Primary Care Provider] - 1-2 days Emmett Vanessa MD [STAFF PHYSICIAN] - 1-2 days
[2024-10-19] MEDS: IBUPROFEN 600 MG TAB PO STA (06:09)
[2024-10-19] MEDS: CEPHALEXIN 500 MG CAP PO STA (06:09)
[2024-10-19] MEDS: SULFAMETHOX-TMP 800-160MG 1 EACH TAB PO STA (06:09)
[2024-10-19] MEDS: ACETAMINOPHEN TAB 325 MG TAB PO STA (06:10)
[2024-10-19] MEDS: Acetaminophen-Codeine 300-30mg TAB PO STA (06:10)
--- NOTE | 2024-10-19 08:05 | US ---
EXAMINATION TYPE: US scrotum with doppler. DATE OF EXAM: 10/19/2024 COMPARISON: NONE CLINICAL INDICATION: Male, 34 years old with history of torsion R; right side pain. TECHNIQUE: Grayscale, color Doppler and spectral Doppler imaging of the scrotum. FINDINGS: EXAM MEASUREMENTS: TESTICLES: Right Testicle: 4.1 x 2.2 x 3.0 cm Left Testicle: 3.9 x 2.1 x 3.3 cm EPIDIDYMIS HEAD: Right Epididymis: .7 x 1.1 x 1.5 cm Left Epididymis: .6 x .7 x 1.4 cm A couple small cystic areas 2 mm in size. Doppler performed to assess for testicular vascularity; good bilateral color flow and spectral wavefo erik are seen. There is no evidence of testicular torsion. Presence of hydroceles: Small area of fluid right testicle. Presence of varicoceles: no IMPRESSION: 1. No evidence for intratesticular mass. 2. Appropriate arterial and venous spectral waveforms to the testes. [facility], , 10/19/2024 8:03 AM
[2024-10-19 08:06] VITALS: RESP 18
[2024-10-19] MEDS: SULFAMETH-TMP DS STARTER PACK 2 TAB BTL PO STA (08:42)
[2024-10-19] MEDS: CEPHALEXIN 500MG STARTER PACK 4 CAP BTL PO STA (08:42)
[2024-10-19] MEDS: ACET/COD 300 MG/30 MG STARTER PACK 6 TAB BTL PO STA (08:43)
[2024-10-19 08:47] VITALS: BP 111/72; PULSE 72; TEMP 98
== END 2024-10-19 08:46 | disposition home or self-care (01) ==
LOC: EC 05:30
DX: N50.82 Scrotal pain (principal); L02.91 Cutaneous abscess, unspecified; F17.200 Nicotine dependence, unspecified, uncomplicated; Z88.0 Allergy status to penicillin
CPT/HCPCS: 76870; 93975; 99284

== ENCOUNTER 2025-01-17 11:29 | Emergency (ER) | payer BC, OTHER ==
[2025-01-17 11:33] VITALS: TEMP 98.9
--- NOTE | 2025-01-17 12:13 | ED ---
General Adult HPI - General Chief complaint: Skin/Abscess/Foreign Body Stated complaint: [facility]-Allergic Rxn Time Seen by Provider: 01/17/25 11:34 Source: patient, RN notes reviewed Mode of arrival: ambulatory Limitations: no limitations - History of Present Illness Initial comments: 34-year-old male presents to the emergency department for evaluation of rash on upper extremities and trunk. Patient states that he noticed this 2 to 3 days ago. He states that it started on his right forearm. He notes that over the past 1 day the rash has seemed to spread onto his trunk and his left upper extremity. He notes that it is extremely itchy. He has been utilizing Benadryl for this. He does report that the Benadryl helped somewhat. He denies any known fever, chills. Denies any nausea, vomiting. Denies any new laundry detergents, soaps. Patient does believe that this is from a tree that he was cutting down about a week ago. He states that he gotten the sap on his arm in the location where the rash started. - Related Data Home Medications Medication Instructions Recorded Confirmed Acetaminophen Tab [Tylenol Tab] 1,000 mg PO Q6HR PRN 08/24/19 08/24/19 Previous Rx's Medication Instructions Recorded Cyclobenzaprine [Flexeril] 10 mg PO TID PRN #15 tab 09/20/21 Cephalexin [Keflex] 500 mg PO Q6HR #40 cap 10/19/24 Sulfamethox-Tmp 800-160Mg [Bactrim 2 tab PO BID #40 tab 10/19/24 DS 800-160 mg] predniSONE 50 mg PO DAILY #5 tab 01/17/25 Allergies Allergy/AdvReac Type Severity Reaction Status Date / Time Penicillins Allergy Rash/Hives Verified 01/17/25 11:33 Review of Systems ROS Statement: Those systems with pertinent positive or pertinent negative responses have been documented in the HPI. ROS Other: All systems not noted in ROS Statement are negative. 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, renal cysts History of Any Multi-Drug Resistant Organisms: MRSA Date of last positivie culture/infection: stomach MDRO Source:: 2014 Past Surgical History: Adenoidectomy, Tonsillectomy Past Psychological History: No Psychological Hx Reported Smoking Status: Current every day smoker Past Alcohol Use History: None Reported Past Drug Use History: Marijuana General Exam Limitations: no limitations General appearance: alert, in no apparent distress Head exam: Present: atraumatic, normocephalic, normal inspection Eye exam: Present: normal appearance, PERRL, EOMI. Absent: scleral icterus, conjunctival injection, periorbital swelling ENT exam: Present: normal exam, mucous membranes moist Neck exam: Present: normal inspection. Absent: tenderness, meningismus, lymphadenopathy Respiratory exam: Present: normal lung sounds bilaterally. Absent: respiratory distress, wheezes, rales, rhonchi, stridor Cardiovascular Exam: Present: regular rate, normal rhythm, normal heart sounds. Absent: systolic murmur, diastolic murmur, rubs, gallop, clicks Extremities exam: Present: normal inspection, full ROM, normal capillary refill. Absent: tenderness, pedal edema, joint swelling, calf tenderness Back exam: Present: normal inspection Neurological exam: Present: alert, oriented X3 Psychiatric exam: Present: normal affect, normal mood Skin exam: Present: warm, dry, rash (Erythematous blanching macules on the bilateral upper extremities, anterior chest wall and back). Absent: intact, normal color Course Vital Signs 01/17/25 01/17/25 11:30 13:00 Temperature 98.9 F 98.9 F Pulse Rate 73 68 Respiratory 17 16 Rate Blood Pressure 141/81 140/80 O2 Sat by Pulse 100 100 Oximetry Medical Decision Making - Medical Decision Making Was pt. sent in by a medical professional or institution (, PA, [facility] [employer], urgent care, hospital, or halfway...) When possible be specific @ -No Did you speak to anyone other than the patient for history (EMS, parent, family, police, friend...)? What history was obtained from this source @ -No Did you review nursing and triage notes (agree or disagree)? Why? @ -I reviewed and agree with nursing and triage notes Were old charts reviewed (outside hosp., previous admission, EMS record, old EKG, old radiological studies, urgent care reports/EKG's, halfway records)? Report findings @ -No old charts were reviewed Differential Diagnosis (chest pain, altered mental status, abdominal pain women, abdominal pain men, vaginal bleeding, weakness, fever, dyspnea, syncope, headache, dizziness, GI bleed, back pain, seizure, CVA, palpatations, mental health, musculoskeletal)? @ -Poison di, poison oak, cellulitis, contact dermatitis, atopic dermatitis, this list is not all inclusive EKG interpreted by me (3pts min.). @ -None X-rays interpreted by me (1pt min.). @ -None done CT interpreted by me (1pt min.). @ -None done U/S interpreted by me (1pt. min.). @ -None done What testing was considered but not performed or refused? (CT, X-rays, U/S, labs)? Why? @ -None What meds were considered but not given or refused? Why? @ -None Did you discuss the management of the patient with other professionals (pro fessionals i.e. , PA, [employer], lab, RT, psych nurse, transition social worker, continuity reader, teacher, contract officer, case folder)? Give summary @ -No Was smoking cessation discussed for >3mins.? @ -No Was critical care preformed (if so, how long)? @ -No Were there social determinants of health that impacted care today? How? (Homelessness, low income, unemployed, alcoholism, drug addiction, transportation, low edu. Level, literacy, decrease access to med. care, fpc, rehab)? @ -No Was there de-escalation of care discussed even if they declined (Discuss DNR or withdrawal of care, Hospice)? DNR status @ -No What co-morbidities impacted this encounter? (DM, HTN, Smoking, COPD, CAD, Cancer, CVA, ARF, Chemo, Hep., AIDS, mental health diagnosis, sleep apnea, morbid obesity)? @ -None Was patient admitted / discharged? Hospital course, mention meds given and route, prescriptions, significant lab abnormalities, going to OR and other pertinent info. @ -Discharge. Patient presented emergency department for evaluation of rash on trunk and upper extremities. Patient believes that this is from the sap of the tree that he was exposed to about a week ago. Denies any fever, chills, difficulty breathing. Patient was provided a dose of IM steroids in the emergency department. Prescription sent to the patient's pharmacy for short course of steroids. Patient will be discharged home. He is understanding agreeable with plan. Patient stable at time of discharge. Case discussed with Dr. Lima. Undiagnosed new problem with uncertain prognosis? @ -No Drug Therapy requiring intensive monitoring for toxicity (Heparin, Nitro, Insulin, Cardizem)? @ -No Were any procedures done? @ -No Diagnosis/symptom? @ -Contact dermatitis Acute, or Chronic, or Acute on Chronic? @ -Acute Uncomplicated (without systemic symptoms) or Complicated (systemic symptoms)? @ -Uncomplicated Side effects of treatment? @ -No Exacerbation, Progression, or Severe Exacerbation? @ -No Poses a threat to life or bodily function? How? (Chest pain, [place], [place], pneumonia, PE, COPD, DKA, ARF, appy, cholecystitis, CVA, Diverticulitis, Homicidal, Suicidal, threat to staff... and all critical care pts) @ -No Disposition Clinical Impression: Contact dermatitis Disposition: HOME SELF-CARE Condition: Stable Instructions (If sedation given, give patient instructions): Poison Di (ED), Acute Rash (ED) Additional Instructions: Please keep the areas clean and dry. Utilize the topical steroid that you have at home while awaiting the prescription medication. You may also utilize Benadryl and Pepcid for symptom relief. Follow-up with your primary care provider. Return to the emergency department for new or worsening symptoms. Prescriptions: predniSONE 50 mg PO DAILY #5 tab Is patient prescribed a controlled substance at d/c from ED?: No Referrals: Augustin Willett DO [Primary Care Provider] - 1-2 days
[2025-01-17] MEDS: DEXAMETHASONE SOD PHOSPHATE 10 MG/ML 1 ML VIAL IM STA (12:52)
[2025-01-17] MEDS: FAMOTIDINE 20 MG TAB PO STA (12:52)
[2025-01-17 13:04] VITALS: BP 140/80; PULSE 68; RESP 16
== END 2025-01-17 13:00 | disposition home or self-care (01) ==
LOC: EC 11:29
DX: L25.9 Unspecified contact dermatitis, unspecified cause (principal); F17.200 Nicotine dependence, unspecified, uncomplicated; Z88.0 Allergy status to penicillin
CPT/HCPCS: 99283; 96372; J1100